=== PATIENT | male | born 1945 | race Caucasian/White ===

== ENCOUNTER 2017-09-09 20:36 | Inpatient (IN) | payer OTHER, MEDICARE ==
[~2017-09-09] VITALS: Ht 180.3 cm; Wt 109.9 kg
[2017-09-09] MEDS ORDERED: SYNTHROID100 MCG PO (20:49)
[2017-09-09] MEDS ORDERED: FLOMAX0.4 M1 PO (20:49)
[2017-09-09] MEDS ORDERED: NEXIUM20 M1 PO (20:50)
[2017-09-09] MEDS ORDERED: ASPIRIN81 M4 PO (20:50)
[2017-09-09] MEDS ORDERED: LIPITOR10 M1 PO (20:50)
[2017-09-09 21:18] LABS: ABSOLUTE BASOPHIL COUNT 0 /CUMM (0.0-0.2); ABSOLUTE EOSINOPHIL COUNT 0.1 /CUMM (0.0-0.7); ABSOLUTE GRANULOCYTE CT 5.4 /CUMM (1.4-6.5); ABSOLUTE LYMPH COUNT 0.9 /CUMM (1.2-3.4); ABSOLUTE MONOCYTE COUNT 0.4 /CUMM (0.10-0.60); BASOPHIL % 0.3 % (0.0-2.0); EOSINOPHIL % 1.3 % (0-5); GRANULOCYTE % 79.3 % (42.2-75.2); HEMATOCRIT 39.6 % (42-52); MEAN CORPUSCULAR HGB 30.8 PG (27.0-31.0); MEAN CORPUSCULAR HGB CONC 32.6 G/DL (33.0-37.0); MEAN CORPUSCULAR VOLUME 94.3 FL (80.0-94.0); MEAN PLATELET VOLUME 9.1 FL (7.4-10.4); PLATELET COUNT 168 /CUMM (130-400); RBC DISTRIBUTION WIDTH 13.9 % (11.5-14.5); WHITE BLOOD CELL COUNT 6.9 /CUMM (4.8-10.8)
--- NOTE | 2017-09-09 21:19 | ED GI/GU/ABDOMINAL COMPLAINT ---
History of Present Illness General Chief Complaint: Abdominal Pain/Flank Pain Stated Complaint: PT SIB HIS DR FOR ABDOMINAL PAIN Source: patient, family Exam Limitations: no limitations Vital Signs & Intake/Output Vital Signs & Intake/Output Vital Signs Date Time Temp Pulse Resp B/P B/P Pulse O2 O2 Flow FiO2 Mean Ox Delivery Rate 09/10 0641 98.0 78 20 157/78 95 Room Air 09/10 0352 98.6 86 20 129/76 92 Room Air 09/09 2359 98.9 76 18 163/82 09/09 2045 100.2 83 18 123/83 98 Room Air ED Intake and Output 09/10 0000 09/09 1200 Intake Total 2000 Output Total Balance 2000 Intake, IV 2000 Patient 240 lb Weight Weight Reported by Patient Measurement Method Allergies Coded Allergies: No Known Allergies (09/09/17) Reconcile Medications Aspirin (Aspirin*) 81 MG TAB.CHEW 1 TAB PO DAILY HEART HEALTH (Reported) Atorvastatin Calcium (Lipitor) 10 MG TABLET 1 TAB PO DAILY > CHOL (Reported) Esomeprazole Magnesium (Nexium) 20 MG CAPSULE.DR 1 CAP PO DAILY GERD ( Reported) Levothyroxine Sodium (Synthroid) 100 MCG TABLET 1 TAB PO DAILY HYPOTHYROID ( Reported) Tamsulosin HCl (Flomax) 0.4 MG CAP.ER.24H 1 CAP PO DAILY BPH (Reported) Triage Note: PT TO C/C RUQ PAIN "COLIC" X 3 DAYS, SEEN FOR SAME AT [facility] ON SUNDAY HAD NORMAL LABS, ABD U/S. SENT BY PCP DR. MATTHEW Triage Nurses Notes Reviewed? yes HPI: 72 yo M PMH JAYDEN, A-Fib presenting with abdominal pain. Upper quadrant abdominal pain for the last 4-5 days, colicky, intermittent, sitting waning intensity, sharp quality, sometimes worse after eating but also occurs independently of food. Associated nausea with nonbloody nonbilious emesis with pain. Denies associated chest pain, palpitations, shortness of breath, cough or URI symptoms, diarrhea, constipation, bloody stools, urinary symptoms, headache, neck pain, or focal neurologic symptoms. Evaluated at [facility] ED 3 days ago, labs reportedly unremarkable, right upper quadrant ultrasound negative, discharged with pain and nausea control. This evening patient had intractable right upper quadrant pain following dinner, some tactile fevers, spoke with PMD, sent to ED for evaluation. (Benedict Coleman MD) Past History Travel History Traveled to [place] past 21 day No Medical History Any Pertinent Medical History? see below for history Cardiovascular: AFIB Respiratory: JAYDEN Endocrine: Grave's disease Surgical History Surgical History: none Psychosocial History What is your primary language Indian Tobacco Use: Never used Family History Hx Contributory? No (Benedict Coleman MD) Review of Systems Review of Systems Constitutional: Reports: no symptoms. EENTM: Reports: no symptoms. Respiratory: Reports: no symptoms. Cardiovascular: Reports: no symptoms. GI: Reports: see HPI. Genitourinary: Reports: no symptoms. Musculoskeletal: Reports: no symptoms. Skin: Reports: no symptoms. Neurological/Psychological: Reports: no symptoms. Hematologic/Endocrine: Reports: no symptoms. Immunologic/Allergic: Reports: no symptoms. All Other Systems: Reviewed and Negative (Benedict Coleman MD) Physical Exam Physical Exam General Appearance: well developed/nourished, no apparent distress, alert Head: atraumatic Eyes: Bilateral: PERRL, EOMI. Ears, Nose, Throat, Mouth: moist mucous membrane Neck: normal inspection, full range of motion, no midline tenderness Respiratory: normal breath sounds, no respiratory distress, lungs clear Cardiovascular: regular rate/rhythm, normal peripheral pulses Gastrointestinal: normal bowel sounds, soft, tenderness Comments: Abdomen: Mild distention, soft, tenderness to palpation in right upper quadrant with positive Rasheed sign, no rebound or guarding Core Measures ACS in differential dx? No Sepsis Present: No Sepsis Focused Exam Completed? No (Benedict Coleman MD) Progress Differential Diagnosis: AAA, AMI, appendicitis, biliary colic, bowel obstruction , colon cancer, cholecystitis, diverticulitis, epididymitis, esophageal varices, gastritis, hepatitis, hernia, hemorrhoids, ischemic bowel, inflamm bowel dis, Renée-Eric tear, orchitis, pancreatitis, prostatitis, peptic ulcer, PUD/GERD, perforated viscous, pyelonephritis, SBO, STD, testicular torsion, ureterolithiasis, urinary retention, urethritis, UTI/pyelo Plan of Care: Orders Procedure Date/time Status Admit to inpatient 09/10 0708 Active URINALYSIS 09/09 215 Complete TROPONIN LEVEL 09/10 2039 Complete LIPASE 09/10 2039 Complete COMPREHENSIVE METABOLIC PANEL 09/10 2039 Complete CBC WITHOUT DIFFERENTIAL 09/10 2039 Complete EKG 09/10 2039 Active Laboratory Tests 09/09/172209: Urinalysis LIGHT H, Urine Color YEL, Urine Clarity HAZY H, Urine pH 5.5, Ur Specific [place] 1.020, Urine Protein TRACE H, Urine Ketones TRACE H, Urine Nitrite NEG, Urine Bilirubin NEG@ICTO, Urine Urobilinogen 0.2, Ur Leukocyte Esterase SMALL H, Ur Microscopic SEDIMENT EXAMINED, Urine RBC >75 H, Urine WBC 3-5 H, Ur Epithelial Cells RARE, Urine Mucus FEW, Urine Hemoglobin LARGE H, Urine Glucose NEG 09/09/172047: Anion Gap 11, Estimated GFR > 60, BUN/Creatinine Ratio 30.0 H, Glucose 119 H, Calcium 9.3, Total Bilirubin 1.0, AST 14 L, ALT 26, Alkaline Phosphatase 54, Troponin I < 0.01, Total Protein 7.4, Albumin 4.1, Globulin 3.3, Albumin/ Globulin Ratio 1.2, Lipase 216, CBC w Diff NO MAN DIFF REQ, RBC 4.20 L, MCV 94.3 H, MCH 30.8, MCHC 32.6 L, RDW 13.9, MPV 9.1, Gran % 79.3 H, Lymphocytes % 13.8 L, Monocytes % 5.3, Eosinophils % 1.3, Basophils % 0.3, Absolute Granulocytes 5.4, Absolute Lymphocytes 0.9 L, Absolute Monocytes 0.4, Absolute Eosinophils 0.1, Absolute Basophils 0 Physician MDM: 72 yo M PMH JAYDEN, A-Fib presenting with abdominal pain. VSS, temp 100.2 tympanic (probable true fever), abdominal exam as above. DDx: Biliary colic, cholecystitis, ascending cholangitis, colitis, pancreatitis, pyelonephritis, nephrolithiasis, right lower lobe pneumonia. Bedside ultrasound without pericholecystic fluid, gallbladder wall thickening, or biliary stones, common bile duct grossly normal in size. Morphine and Zofran for pain. Plan for labs, urinalysis, chest x-ray, CT abdomen and pelvis. Signed out to Dr. Padilla at 23:00, disposition pending reevaluation and results of imaging. Initial ED EKG: none (Jared NUNO,Benedict) Diagnostic Imaging: Viewed by Me: Radiology Read, CT Scan. Discussed w/RAD: Radiology Read, CT Scan. Radiology Impression: PATIENT: MARILUZ COLLADO PRESENT AGE: 72 PATIENT ACCOUNT NO: [id number] : 45 LOCATION: [facility] ORDERING PHYSICIAN: Benedict Coleman MD SERVICE DATE: 09/09/17 EXAM TYPE: CAT - CT ABD & PELVIS W IV CONTRAST EXAMINATION: CT ABD PELVIS W IV CONTRAST CLINICAL INFORMATION: Ascending cholangitis, RIGHT upper quadrant pain COMPARISON: None TECHNIQUE: Multidetector volumetric imaging was performed from the superior aspect of the liver through the pubic symphysis IV contrast injected. Sagittal and coronal reformatted images were obtained on the technologist's workstation. DLP: 1066 mGy-cm FINDINGS: LOWER THORAX: Included lung bases are clear. HEPATOBILIARY: No focal hepatic lesions. No biliary ductal dilatation. GALLBLADDER: Gallbladder unremarkable. SPLEEN: Spleen is normal in size. PANCREAS: No focal mass or ductal dilatation. STOMACH AND GASTROINTESTINAL TRACT: Stomach is grossly unremarkable. There is no bowel distention or thickening. No CT evidence of appendicitis. ADRENALS: No adrenal nodules. KIDNEYS/URETERS: There is a 5 mm stone lodged in the distal RIGHT ureter just proximal to the ureterovesicular junction, mild hydronephrosis, there is delayed enhancement of the RIGHT kidney suggesting renal obstruction. URINARY BLADDER: Unremarkable PELVIC VISCERA: Unremarkable PERITONEUM: No free air or fluid. LYMPH NODES: No lymphadenopathy. VASCULAR: Unremarkable BONES, ABDOMINAL WALL AND SOFT TISSUES: Age-appropriate changes of the spine and skeletal system, no destructive osteolytic or osteosclerotic bone lesion found, there is a RIGHT inguinal hernia containing fat and mesentery. IMPRESSION: 1. There is a 5 mm stone lodged in the distal RIGHT ureter causing renal obstruction and RIGHT renal hydronephrosis, delayed nephrogenic phase of the RIGHT kidney. 2. Visualized bowel are normal. 3. Right inguinal hernia containing fat only. DICTATED BY: Paige NUNO,Yves DATE/TIME DICTATED:09/09/172331 [employer]:ANASTASIYA DATE/TIME TRANSCRIBED:09/09/172331 CONFIDENTIAL, DO NOT COPY WITHOUT APPROPRIATE AUTHORIZATION. <Electronically signed in Other Vendor System> SIGNED BY: Paige NUNO,Hadrodriguezr 09/09/17 4054 CXR Impression: PATIENT: MARILUZ COLLADO PRESENT AGE: 72 PATIENT ACCOUNT NO: [id number] : 45 LOCATION: [facility] ORDERING PHYSICIAN: Benedict Coleman MD SERVICE DATE: 09/09/17 EXAM TYPE: RAD - XRY-CHEST XRAY, TWO VIEWS EXAMINATION: XR CHEST CLINICAL INFORMATION: Fever and right upper quadrant pain. COMPARISON: None TECHNIQUE: Single AP radiograph of the chest and 2 lateral radiographs were provided for evaluation. FINDINGS: The lungs are clear. No pleural effusion. Cardiomediastinal silhouette and pulmonary vasculature are within normal limits. Degenerative changes of the visualized spine. No acute osseous finding. IMPRESSION: No acute cardiopulmonary disease. DICTATED BY: Dimitry Collins MD DATE/TIME DICTATED:09/09/172238 [employer]:ANASTASIYA DATE/TIME TRANSCRIBED:09/09/172238 CONFIDENTIAL, DO NOT COPY WITHOUT APPROPRIATE AUTHORIZATION. <Electronically signed in Other Vendor System> SIGNED BY: Dimitry Collins MD 09/09/17 3062 Comments: Patient has been updated on labs and CAT scan findings. Patient is a retired esl professor. Patient states that he notes that he is going to need a procedure to help pass that stone. Patient states he is been fighting this for 4 days and has had multiple episodes of dry heaving. Patient has required 2 doses of narcotic pain medications as well as Toradol here in the emergency department. A call was then placed urology. Pain decreased after IV Toradol. Discussed with Dr. Hernandez. Patient is to remain nothing by mouth and Dr. Hernandez will see the patient first thing in the morning. (Valerie NUNO,Adam Jeong) Departure Departure Disposition: STILL A PATIENT Condition: Stable Referrals: Emilie NUNO,Magdaleno Dumas (PCP/Family) Departure Forms: Customer Survey General Discharge Information (Jared NUNO,Benedict) Departure Clinical Impression Primary Impression: RUQ pain Secondary Impressions: Urinary tract obstruction by kidney stone Admission Note Spoke With: Yogesh Hernandez MD Documentation of Exam: Documentation of any treatments & extenuating circumstances including Concerns Regarding Discharge (functional status, medication knowledge or non-compliance, living conditions, etc.) that warrant an admission rather than observation: [PT TO GO TO THE OR FOR STONE RETRIEVLE AND PAIN CONTROL.] Resident Co-Sign Statement Statement: ED Attending supervision documentation- [X] I saw and evaluated the patient. I have also reviewed all the pertinent lab results and diagnostic results. I agree with the findings and the plan of care as documented in the Resident's documentation. [X] I have reviewed the ED Record and agree with the Resident's documentation. [] Additions or exceptions (if any) to the Resident's note and plan are summarized below: [] (Valerie NUNO,Adam Jeong)
--- NOTE | 2017-09-09 22:43 | RADIOLOGY REPORT ---
EXAMINATION: XR CHEST CLINICAL INFORMATION: Fever and right upper quadrant pain. COMPARISON: None TECHNIQUE: Single AP radiograph of the chest and 2 lateral radiographs were provided for evaluation. FINDINGS: The lungs are clear. No pleural effusion. Cardiomediastinal silhouette and pulmonary vasculature are within normal limits. Degenerative changes of the visualized spine. No acute osseous finding. IMPRESSION: No acute cardiopulmonary disease.
--- NOTE | 2017-09-09 23:44 | CT SCAN REPORT ---
EXAMINATION: CT ABD PELVIS W IV CONTRAST CLINICAL INFORMATION: Ascending cholangitis, RIGHT upper quadrant pain COMPARISON: None TECHNIQUE: Multidetector volumetric imaging was performed from the superior aspect of the liver through the pubic symphysis IV contrast injected. Sagittal and coronal reformatted images were obtained on the technologist's workstation. DLP: 1066 mGy-cm FINDINGS: LOWER THORAX: Included lung bases are clear. HEPATOBILIARY: No focal hepatic lesions. No biliary ductal dilatation. GALLBLADDER: Gallbladder unremarkable. SPLEEN: Spleen is normal in size. PANCREAS: No focal mass or ductal dilatation. STOMACH AND GASTROINTESTINAL TRACT: Stomach is grossly unremarkable. There is no bowel distention or thickening. No CT evidence of appendicitis. ADRENALS: No adrenal nodules. KIDNEYS/URETERS: There is a 5 mm stone lodged in the distal RIGHT ureter just proximal to the ureterovesicular junction, mild hydronephrosis, there is delayed enhancement of the RIGHT kidney suggesting renal obstruction. URINARY BLADDER: Unremarkable PELVIC VISCERA: Unremarkable PERITONEUM: No free air or fluid. LYMPH NODES: No lymphadenopathy. VASCULAR: Unremarkable BONES, ABDOMINAL WALL AND SOFT TISSUES: Age-appropriate changes of the spine and skeletal system, no destructive osteolytic or osteosclerotic bone lesion found, there is a RIGHT inguinal hernia containing fat and mesentery. IMPRESSION: 1. There is a 5 mm stone lodged in the distal RIGHT ureter causing renal obstruction and RIGHT renal hydronephrosis, delayed nephrogenic phase of the RIGHT kidney. 2. Visualized bowel are normal. 3. Right inguinal hernia containing fat only.
--- NOTE | 2017-09-10 07:17 | Cons- Urology ---
General Information and HPI Consulting Request Date of Consult: 09/10/17 Requested By: MD TRISHA, CATHLEEN-EMERGENCY MED. Reason for Consult: RIGTH HYDRO. WITH SEVERE COLIC Source of Information: patient, old records Exam Limitations: no limitations History of Present Illness: 72 YEAR OLD WITH RIGHT UQ PAIN FOR ONE WEEK. SEEN AT [facility]. SUSPECTED GI/GB AND DC'S HOME. PAIN PERSISTED, NOW WITH MILD FEVER, AND CAME TO ER. CT REVEALS 5MM OBST. STONE WITH URETER EDEMA. Allergies/Medications Allergies: Coded Allergies: No Known Allergies (09/09/17) Home Med List: Aspirin (Aspirin*) 81 MG TAB.CHEW 1 TAB PO DAILY HEART HEALTH (Reported) Atorvastatin Calcium (Lipitor) 10 MG TABLET 1 TAB PO DAILY > CHOL (Reported) Esomeprazole Magnesium (Nexium) 20 MG CAPSULE.DR 1 CAP PO DAILY GERD ( Reported) Levothyroxine Sodium (Synthroid) 100 MCG TABLET 1 TAB PO DAILY HYPOTHYROID ( Reported) Tamsulosin HCl (Flomax) 0.4 MG CAP.ER.24H 1 CAP PO DAILY BPH (Reported) Current Medications: Current Medications Sig/Dru Start time Last Medication Dose Route Stop Time Status Admin Ketorolac 0 .STK-MED ONE 09/10 0010 DC Tromethamine .ROUTE Ketorolac 30 MG ONCE ONE 09/09 2345 DC 09/10 Tromethamine IV 09/09 2346 0006 Morphine Sulfate 6 MG ONCE ONE 09/09 2345 DC 09/09 IV 09/09 2346 2336 Morphine Sulfate 0 .STK-MED ONE 09/09 2339 DC .ROUTE Morphine Sulfate 6 MG ONCE ONE 09/09 2230 DC 09/09 IV 09/09 2230 222 Morphine Sulfate 0 .STK-MED ONE 09/09 2228 DC .ROUTE Ondansetron HCl 0 .STK-MED ONE 09/09 2242 DC .ROUTE Ondansetron HCl 4 MG ONCE ONE 09/09 2229 DC 09/09 IV 09/09 Past History Medical History Blood Transfusion Hx: No EENT: SUPRAGLOTTAL FOLD Cardiovascular: AFIB Respiratory: JAYDEN Gastrointestinal: NONE Endocrine: Grave's disease Surgical History Pertinent Surgical History: none (SUPRA GLOTTAL FOLD SURGERY-5HR), 1 Psychosocial History Where Do You Live? Home Services at Home: None Primary Language: Bengali Smoking Status: Never Smoked ETOH Use: occasional use Illicit Drug Use: denies illicit drug use Functional Ability ADLs Independent: dressing, eating, toileting, bathing. Ambulation: independent IADLs Independent: shopping, housework, finances, food prep, telephone, transportation , medication admin. Employment History Employment: Retired Profession/Employer: database developer Retired? yes Review of Systems Review of Systems Constitutional: Reports: see HPI, diaphoresis. EENTM: Denies: no symptoms. Cardiovascular: Denies: no symptoms. Respiratory: Denies: no symptoms. GI: Reports: abdominal pain, bloating. Musculoskeletal: Denies: no symptoms. Skin: Denies: no symptoms. Exam & Diagnostic Data Vital Signs and I&O Vital Signs Date Time Temp Pulse Resp B/P B/P Pulse O2 O2 Flow FiO2 Mean Ox Delivery Rate 09/10 0641 98.0 78 20 157/78 95 Room Air 09/10 0352 98.6 86 20 129/76 92 Room Air 09/09 2359 98.9 76 18 163/82 09/09 2045 100.2 83 18 123/83 98 Room Air Intake & Output 09/10 0800 09/10 0000 09/09 1600 09/09 0800 09/09 0000 09/08 1600 Intake Total 2000 Output Total Balance 2000 Intake, IV 2000 Patient 240 lb Weight Weight Reported by Patient Measurement Method Physical Exam General Appearance: well developed/nourished, mild distress Head: atraumatic Eyes: Bilateral: normal appearance. Neck: normal inspection, supple, full range of motion Respiratory: normal breath sounds Cardiovascular: irregularly irregular Gastrointestinal: normal bowel sounds, soft, non-tender Back: CVA tenderness (R) Extremities: normal inspection Skin: intact, normal color, warm/dry Reproductive: Normal male genitalia Last 24 Hours of Labs: Laboratory Tests 09/09 Chemistry Sodium (137 - 145 mmol/L) 144 Potassium (3.5 - 5.1 mmol/L) 4.2 Chloride (98 - 107 mmol/L) 103 Carbon Dioxide (22 - 30 mmol/L) 30 Anion Gap (5 - 16) 11 BUN (9 - 20 mg/dL) 30 H Creatinine (0.7 - 1.2 mg/dL) 1.0 Estimated GFR (>60 ml/min) > 60 BUN/Creatinine Ratio (7 - 25 %) 30.0 H Glucose (65 - 99 mg/dL) 119 H Calcium (8.4 - 10.2 mg/dL) 9.3 Total Bilirubin (0.2 - 1.3 mg/dL) 1.0 AST (17 - 59 U/L) 14 L ALT (21 - 72 U/L) 26 Alkaline Phosphatase (< 127 U/L) 54 Troponin I (<0.11 ng/ml) < 0.01 Total Protein (6.3 - 8.2 g/dL) 7.4 Albumin (3.5 - 5.0 g/dL) 4.1 Globulin (1.9 - 4.2 gm/dL) 3.3 Albumin/Globulin Ratio (1.1 - 2.2 %) 1.2 Lipase (23 - 300 U/L) 216 Hematology CBC w Diff NO MAN DIFF REQ WBC (4.8 - 10.8 /CUMM) 6.9 RBC (4.70 - 6.10 /CUMM) 4.20 L Hgb (14.0 - 18.0 G/DL) 12.9 L Hct (42 - 52 %) 39.6 L MCV (80.0 - 94.0 FL) 94.3 H MCH (27.0 - 31.0 PG) 30.8 MCHC (33.0 - 37.0 G/DL) 32.6 L RDW (11.5 - 14.5 %) 13.9 Plt Count (130 - 400 /CUMM) 168 MPV (7.4 - 10.4 FL) 9.1 Gran % (42.2 - 75.2 %) 79.3 H Lymphocytes % (20.5 - 51.1 %) 13.8 L Monocytes % (1.7 - 9.3 %) 5.3 Eosinophils % (0 - 5 %) 1.3 Basophils % (0.0 - 2.0 %) 0.3 Absolute Granulocytes (1.4 - 6.5 /CUMM) 5.4 Absolute Lymphocytes (1.2 - 3.4 /CUMM) 0.9 L Absolute Monocytes (0.10 - 0.60 /CUMM) 0.4 Absolute Eosinophils (0.0 - 0.7 /CUMM) 0.1 Absolute Basophils (0.0 - 0.2 /CUMM) 0 Urines Urinalysis LIGHT H Urine Color (YEL,AMB,STR) YEL Urine Clarity (CLEAR) HAZY H Urine pH (5.0 - 8.0) 5.5 Ur Specific [place] (1.001 - 1.035) 1.020 Urine Protein (NEG,<30 MG/DL) TRACE H Urine Ketones (NEG) TRACE H Urine Nitrite (NEG) NEG Urine Bilirubin (NEG) NEG@ICTO Urine Urobilinogen (0.1 - 1.0 EU/dl) 0.2 Ur Leukocyte Esterase (NEG) SMALL H Ur Microscopic SEDIMENT EXAMINED Urine RBC (0 - 5 /HPF) >75 H Urine WBC (0 - 2 /HPF) 3-5 H Ur Epithelial Cells (NONE,FEW) RARE Urine Mucus (FEW,NONE) FEW Urine Hemoglobin (NEG) LARGE H Urine Glucose (N MG/DL) NEG Imaging Results: PATIENT: MARILUZ COLLADO PRESENT AGE: 72 PATIENT ACCOUNT NO: [id number] : 45 LOCATION: [facility] ORDERING PHYSICIAN: Benedict Coleman MD SERVICE DATE: 09/09/17 EXAM TYPE: CAT - CT ABD & PELVIS W IV CONTRAST EXAMINATION: CT ABD PELVIS W IV CONTRAST CLINICAL INFORMATION: Ascending cholangitis, RIGHT upper quadrant pain COMPARISON: None TECHNIQUE: Multidetector volumetric imaging was performed from the superior aspect of the liver through the pubic symphysis IV contrast injected. Sagittal and coronal reformatted images were obtained on the technologist's workstation. DLP: 1066 mGy-cm FINDINGS: LOWER THORAX: Included lung bases are clear. HEPATOBILIARY: No focal hepatic lesions. No biliary ductal dilatation. GALLBLADDER: Gallbladder unremarkable. SPLEEN: Spleen is normal in size. PANCREAS: No focal mass or ductal dilatation. STOMACH AND GASTROINTESTINAL TRACT: Stomach is grossly unremarkable. There is no bowel distention or thickening. No CT evidence of appendicitis. ADRENALS: No adrenal nodules. KIDNEYS/URETERS: There is a 5 mm stone lodged in the distal RIGHT ureter just proximal to the ureterovesicular junction, mild hydronephrosis, there is delayed enhancement of the RIGHT kidney suggesting renal obstruction. URINARY BLADDER: Unremarkable PELVIC VISCERA: Unremarkable PERITONEUM: No free air or fluid. LYMPH NODES: No lymphadenopathy. VASCULAR: Unremarkable BONES, ABDOMINAL WALL AND SOFT TISSUES: Age-appropriate changes of the spine and skeletal system, no destructive osteolytic or osteosclerotic bone lesion found, there is a RIGHT inguinal hernia containing fat and mesentery. IMPRESSION: 1. There is a 5 mm stone lodged in the distal RIGHT ureter causing renal obstruction and RIGHT renal hydronephrosis, delayed nephrogenic phase of the RIGHT kidney. 2. Visualized bowel are normal. 3. Right inguinal hernia containing fat only. Assessment/Plan Assessment/Plan RIGHT OBST. 5MM STONE WITH NAUSEA/FEVER: PLAN IS RIGHT STENT POSSIBLE URETEROSCOPY-LASER. Copies To: David NUNO,Yogesh Bettencourt Acknowledgment - Thank you for your consult request. Attending MD Review Statement Attending Statement Attending MD Statement: examined this patient, discuss w/resident/PA/LLAMA FARMER Attending Assessment/Plan: RIGHT URETER STONE FOR [id number]-LASER TODAY: ADMIT.
[2017-09-10 18:00] VITALS: BP 134/60
[2017-09-10 22:50] VITALS: BP 126/60
[2017-09-11 07:03] VITALS: BP 130/68
[2017-09-11] MEDS ORDERED: DOCUSATE SODIU100 M3 PO (07:41)
[2017-09-11] MEDS ORDERED: ONDANSETRON4 MG/2 M3 PO (07:41)
--- NOTE | 2017-09-11 08:09 | RADIOLOGY REPORT ---
EXAMINATION: INTRAOPERATIVE FLUOROSCOPY DURING RIGHT URETEROSCOPY CLINICAL INDICATION: Right ureteral stone. COMPARISON: None. TECHNIQUE: The procedure was performed by Dr. Hernandez in the operating room. FLUOROSCOPY TIME: 31 seconds. Number of images: 1 FINDINGS: Fluoroscopic imaging demonstrates insertion of a catheter into the right ureter and opacification of the right renal collecting system. IMPRESSION: Intraoperative fluoroscopy was utilized by Dr. Hernandez during right ureteroscopy. Please refer to the operative report for a detailed description of the procedure and the real-time findings made and acted upon by the surgeon.
[2017-09-11 08:36] LABS: ABSOLUTE BASOPHIL COUNT 0 /CUMM (0.0-0.2); ABSOLUTE EOSINOPHIL COUNT 0.1 /CUMM (0.0-0.7); ABSOLUTE GRANULOCYTE CT 5.7 /CUMM (1.4-6.5); ABSOLUTE LYMPH COUNT 0.8 /CUMM (1.2-3.4); ABSOLUTE MONOCYTE COUNT 0.5 /CUMM (0.10-0.60); BASOPHIL % 0.2 % (0.0-2.0); EOSINOPHIL % 1.3 % (0-5); GRANULOCYTE % 79.3 % (42.2-75.2); HEMATOCRIT 35.9 % (42-52); MEAN CORPUSCULAR HGB 31.5 PG (27.0-31.0); MEAN CORPUSCULAR HGB CONC 32.9 G/DL (33.0-37.0); MEAN CORPUSCULAR VOLUME 95.8 FL (80.0-94.0); MEAN PLATELET VOLUME 9.3 FL (7.4-10.4); PLATELET COUNT 136 /CUMM (130-400); RBC DISTRIBUTION WIDTH 13.8 % (11.5-14.5); RED BLOOD CELL CT 3.75 /CUMM (4.70-6.10); WHITE BLOOD CELL COUNT 7.2 /CUMM (4.8-10.8)
--- NOTE | 2017-09-26 07:57 | Operative Report ---
Operative/Inv Procedure Report Surgery Date: 09/10/17 Name of Procedure: right ureteroscopy;laser litho. of ureter stone. fluoros. Pre-Operative Diagnosis: right hydro. with ureter stone Post-Operative Diagnosis: same Estimated Blood Loss: scant Surgeon/Blender: Yogesh Hernandez MD Anesthesia: moderate sedation Complications: none Operative/Procedure Note Note: The patient was taken to the operating room and placed on the OR table in supine position. With the patient awake, timeout was performed in order to confirm; correct patient, correct procedure, as well as correct laterality, and other pertinent félix-operative information. After adequate anesthesia and antibiotics , the patient was then placed lithotomy stirrups, draped and prepped in the usual surgical fashion. A 22 Kosovan cystoscope sheath with 30 angle lens was inserted into the bladder without difficulty. Upon entering the bladder, the bladder was noted to be free of tumor free of stone. Both orifices were in their orthotopic position. The right ureter orifice was intubated with an 8fr cone-tip catheter and a retrograde pyelogram with fluoroscopy was performed. A proximal ureter strictue , and a 7 mm right distal ureter filling defect (c/w stone), with proximal hydronephrosis, was visualized. The cone-tipped catheter was removed, followed by insertion of a 0.035 Glidewire, which was advanced into the left renal pelvis without difficulty, with correct placement confirmed on fluoroscopy. Leaving the Glidewire in place, an 8 Kosovan ureteral dilator was reloaded over the Glidewire. The dilator was advanced slowly, and easily, with fluoroscopic visualization and advanced beyond the stricture, effectively dilating the stricture, and into the left renal pelvis. The ureteral dilator was then removed, leaving the Glidewire in place. The flexible ureteroscope was reloaded over the Glidewire, and was ealily advanced into the bladder, and into the right ureter under direct fluoroscopic visualization. With the ureteroscope in the right ureter, the large stone was visualized. Under direct visualization the 400 g holmium YAG laser fiber was inserted through the ureteroscope. With the laser fiber in direct contact with the stone, laser lithotripsy was performed in order to pulverize the stone into multiple tiny fragments. The fragments were all flushed out, and fragments were sent to pathology for analysis. At this point, pyeloscopy, and calyxoscopy was performed revealing no other stones, nor any tumor. The Glidewire was then reinserted through the ureteroscope. Leaving the wire in place, the ureteroscope was removede, and the entire length of the ureter was carefully visualized on the way out:no additional stone, or tumor was seen. The bladder was then drained, and the cystoscope was removed. The patient tolerated the procedure well was then taken to the recovery room in satisfactory condition. The patient is to follow up in 1-2 weeks for stent removal. Findings: pt refusing stent Discharge Disposition: PACU CC: Yogesh Hernandez MD
== END 2017-09-11 11:15 | DRG 669 ==
LOC: ERH 20:36 → ERHI 09-10 07:08 → 2NA 09-10 07:08 → ENRESERV 09-10 08:33 → CANRESERV 09-10 08:33 → ENTRNSPT 09-10 16:44 → EDTRNSPTSTS 09-10 17:08 → EDTRNSPT 09-10 17:08 → ENRESERV 09-10 17:36 → 2NA 09-10 17:40 → CMPTRNSPT 09-10 17:43 → DELTRNSPT 09-10 17:50 → ENTRNSPT 09-11 11:05 → EDTRNSPTSTS 09-11 11:08 → EDTRNSPT 09-11 11:08 → 2NA 09-11 11:15 → CMPTRNSPT 09-11 11:22
PROVIDERS: Physician Assistant Medical; Urology
PROC: 0TC68ZZ Extirpation of Matter from Right Ureter, Via Natural or Artificial Opening Endoscopic (ICD-10-PCS; principal; 2017-09-10)
DX: N13.2 Hydronephrosis with renal and ureteral calculous obstruction (principal); E03.9 Hypothyroidism, unspecified; G47.33 Obstructive sleep apnea (adult) (pediatric); N40.0 Benign prostatic hyperplasia without lower urinary tract symptoms; K21.9 Gastro-esophageal reflux disease without esophagitis; Z98.890 Other specified postprocedural states
CPT/HCPCS: 2NAP; 36415; 71046; 74018; 74177; 81001; 93005; 93010; 96374; 96375; 96376; J1885; J2405; J3490; J7042